=== PATIENT | male | born 1965 | race Caucasian/White ===

== ENCOUNTER 2016-08-21 16:12 | Emergency (ER) | payer OTHER, SELFPAY ==
[2016-08-21 16:27] LABS: #Eosinphils 0.2 thou/uL (0.0-0.7); #Lymphocytes 1.5 thou/uL (1.20-3.40); #Monocytes 0.5 thou/uL (0.11-0.59); #Neutrophils 5.1 thou/uL (1.40-6.50); %Basophils 0.5 % (0.0-1.0); %Eosinophils 2.3 % (0.0-10.0); %Lymphocytes 20.9 % (21.0-51.0); %Monocytes 6.7 % (0.0-10.0); Hematocrit 49.2 % (42.0-52.0); Mean Platelet Volume 5.1 fL (7.4-10.4); White Blood Cell (WBC) Count 7.4 thou/uL (4.8-10.8)
[2016-08-21 16:33] LABS: PTT 26.6 SEC (22.9-36.1); Prothrombin Time 13.3 SEC (12.0-14.7)
--- NOTE | 2016-08-21 16:36 | CT ---
CT HEAD NONCONTRAST 08/21/16 HISTORY: Left sided weakness. Headache. FINDINGS: No comparison. There is no evidence of acute intracranial hemorrhage or infarct. The ventricles appe ar normal in size, shape and position. There is no mass effect or shift of midline structures. IMPRESSION: No acute intracranial abnormalities are demonstrated on noncontrast CT head. Findings were called to Dr. Melendez in the [place] [facility] at 1620 hours. Code CR POS: [id number]
[2016-08-21 16:40] LABS: ALT (SGPT) 19 U/L (0-55); AST (SGOT) 26 U/L (5-34); Alkaline Phosphatase 74 U/L (40-150); Anion Gap 10 mmol/L (10-20); BUN (Urea Nitrogen) 15 mg/dL (8.4-25.7); Bilirubin, Total 1.2 mg/dL (0.2-1.2); CK (CPK) 180 U/L (30-200); Calc. Creatinine Clearance 0 mL/min (70-130); Calcium 8.9 mg/dL (7.8-10.44); Carbon Dioxide 22 mmol/L (22-29); Chloride 114 mmol/L (98-107); Estimated GFR-MDRD 68; Globulin 2.5 g/dL (2.4-3.5); Protein, Total 6.3 g/dL (6.0-8.3)
[2016-08-21 16:42] LABS: Troponin I 0.011 ng/mL (< 0.028)
--- NOTE | 2016-08-21 17:54 | ERRECORD ---
[facility] EMERGENCY RECORD HPI CVA (20:27 JL) CHIEF COMPLAINT: Patient presents for evaluation of motor deficits, arm weakness, leg weakness, Patient presents for evaluation of [place] [employer] and suddenly collapsed. EMS reports pt is responsive but dazed, AAO x 3. Unable to move right leg or right arm. Pt also reports facial weakness, numbness of entire face, right arm, and right leg. Pt reports previous CVA approx 6-8 months ago in [place], right-sided and resolved after 1 day. Pt reports few days of headaches and right arms numbness as well as right chest pain that radiates to the right shoulder and hurts with movement of his arm. HISTORIAN: History provided by patient. LOCATION: Symptoms are localized, most severe to the right arm, most severe to the right leg. QUALITY: Patient is alert and oriented to person, place and time, [place] coma score is 15. TIME COURSE: Sudden onset of symptoms, There has been no change in the patient's symptoms over time. ASSOCIATED WITH: No associated anticoagulant use, No associated aphasia, Associated with chest pain, No associated dysarthria, No associated dysphagia, Associated with headache, No associated nausea, Denies neck pain, Associated with numbness, Associated with pain, Associated with paralysis, No associated seizures, Denies syncope, Associated with visual disturbances, intermittent, No associated vomiting. EXACERBATED BY: Patient's condition exacerbated by nothing. RELIEVED BY: Patient's condition relieved by nothing. RISK FACTORS: No hemorrhagic risk factors, No subarachnoid hemorrhage risk factors, CVA/TIA risk factors, Prior CVA / TIA. ROS (20:31 JL) CONSTITUTIONAL: Historian denies chills, denies fever. EYES: Historian denies eye pain, denies eye redness, denies eye discharge, denies photophobia, reports vision changes. vision 'comes and goes'. With NIHSS testing he read the first few words and then suddenly said it all went blurry and he was uable to read. ENT: Historian denies drooling, denies dysphagia, denies rhinorrhea, denies sore throat. CARDIOVASCULAR: Historian reports chest pain, denies syncope. RESPIRATORY: Historian denies cough, denies shortness of breath, denies sputum. GI: Historian denies abdominal pain, denies diarrhea, denies nausea, denies vomiting. Pt reports occasional bright red blood in his stool the past 2 days. GENITOURINARY MALE: Historian denies dysuria, Pt reports &a-1R&a+25V*p+0X*[id number]*c202B*c15G*c2P*p-0X&a-25V&a+1R Name: Jluis Mast : 1965 M51 MedRec: [id number] AcctNum: [id number] Prepared: Jenny Aug 21, 2016 20:44 by Interface Page 1 of 4 pMD [facility] EMERGENCY RECORD occasional hematuria the past 2 days. MUSCULOSKELETAL: Historian denies back pain, denies neck pain. SKIN: Historian denies rash, denies skin changes. NEUROLOGIC: Historian denies dizziness, reports focal weakness, reports headache, reports paralysis, reports paresthesias, denies seizures. PSYCHIATRIC: Historian denies alcohol abuse, denies drug abuse. PAST MEDICAL HISTORY MEDICAL HISTORY: Past medical history includes neurological disease, ischemic cerebral vascular accident. (20:37 JLOY) MALE SURGICAL HISTORY: Surgical history of orthopedic surgery, Lumbar spine. (20:38 JLOY) SOCIAL HISTORY: Patient denies alcohol use, Patient denies drug use, Patient currently uses tobacco. (20:38 JLOY) NOTES: Nursing records reviewed, Agree with nursing records. (20:37 JLOY) KNOWN ALLERGIES No Known Drug Allergies CURRENT MEDICATIONS No recorded medications VITAL SIGNS VITAL SIGNS: BP: 111/71, Pulse: 70, Resp: 20, Temp: 98.2 (Oral), Pain: 9, O2 sat: 100 on 2L Oxygen, Time: 08/21/2016 16:25. (16:25 [facility]BE) BP: 119/73, Pulse: 68, Resp: 18, O2 sat: 100 on 2L Oxygen, Time: 08/21/2016 16:45. (16:45 MCBE) BP: 107/68, Pulse: 77, Resp: 18, Pain: 9, O2 sat: 100 on 2L Oxygen, Time: 08/21/2016 17:00. (17:00 MCBE) BP: 104/76, Pulse: 82, Resp: 20, O2 sat: 100 on 2L Oxygen, Time: 08/21/2016 17:15. (17:15 [facility]BE) BP: 99/63, Pulse: 69, Resp: 16, Temp: 98.2 (Oral), Pain: 9, O2 sat: 100 on 2L Oxygen, Time: 08/21/2016 17:30. (17:30 [facility]BE) PHYSICAL EXAM (20:34 [facility]) CONSTITUTIONAL: Vital Signs Reviewed, Patient appears non toxic, Patient alert and oriented to person, place and time. HEAD: Head exam included findings of head atraumatic, normocephalic. EYES: Eye exam included findings of eyelids normal to inspection, Pupils equally round and reactive to light, Conjunctiva normal. ENT: Pharynx exam normal, Uvula exam normal, Tonsil exam normal, Mouth exam normal, mucous membranes moist. NECK: Neck exam included findings of normal range of motion, Trachea midline, no jugular venous distention, no cervical adenopathy. &a-1R&a+25V*p+0X*[id number]*c202B*c15G*c2P*p-0X&a-25V&a+1R Name: Jluis Mast : 1965 M51 MedRec: [id number] AcctNum: [id number] Prepared: [facility] Aug 21, 2016 20:44 by Interface Page 2 of 4 pMD [facility] EMERGENCY RECORD RESPIRATORY CHEST: Respiratory exam included findings of no respiratory distress, Breath sounds clear, No wheezing, No rales, No rhonchi, Chest exam included findings of chest movement symmetrical, Tenderness, moderate, to the right anterior chest, Palpation of chest reproduces symptoms. CARDIOVASCULAR: Cardiovascular exam included findings of heart rate regular rate and rhythm, Heart sounds normal. ABDOMEN MALE: Abdominal exam included findings of abdomen nontender, Bowel sounds normal. GENITOURINARY MALE: External genitalia normal. BACK: Back exam included findings of normal inspection. UPPER EXTREMITY: Upper extremity exam included findings of inspection normal, Radial pulse normal, no cyanosis, no clubbing, no edema. LOWER EXTREMITY: Lower extremity exam included findings of inspection normal, Pedal pulse normal, no edema, no calf tenderness. NEURO: Neuro exam findings include patient oriented to person, place and time, Speech normal, [place] coma scale 15, Memory normal, Deep tendon reflexes normal, Pt makes no effort to smile when instructed and says 'I cant move'. This is equal bilaterally. Pt makes no effort to move his brows bilaterally. Pt tracks to the left but says uable to the right. Pt initially deviates tongue to the left. Pt denies sensation to both sides of face. Pt with no sensation to pinprick on right arm, hand, leg but reports some sensation to right ankle and foot. Pt unable to move arm and leg initially with no effort, lets fall to bed when dropped. SKIN: Skin exam included findings of skin warm, dry, and normal in color, no rash. PSYCHIATRIC: Affect, flat. DOCTOR NOTES TEXT: Spoke with Dr. Whitten who accepted the transfer. Spoke with Dr. Guidry concerning the reported hematuria/ blood in stool. Spoke with Dr. Guidry again concerning the varying state of the patient's exam and inability to evaluate his true neurologic state fully. Will hold off on TPA and transfer. (17:19 CHRIS) During the reyez insertion pt suddenly able to move right arm and grab and pull the nurse putting in the reyez. Pt then reported some weakness but also pain with movement. Was able to hold against gravity. Pt initially reports unable to move his face but on transfer to the EMS stretcher pt noted to grimace visibly and easily by nursing staff. (20:38 CHRIS) PROBLEM LIST No recorded problems DIAGNOSIS (17:22 CHRIS) FINAL: PRIMARY: Cerebral infarction. PRESCRIPTION &a-1R&a+25V*p+0X*[id number]*c202B*c15G*c2P*p-0X&a-25V&a+1R Name: Jluis Mast : 1965 M51 MedRec: [id number] AcctNum: [id number] Prepared: [facility] Aug 21, 2016 20:44 by Interface Page 3 of 4 pMD [facility] EMERGENCY RECORD No recorded prescriptions DISPOSITION PATIENT: Disposition Type: Transfer, Disposition: Transfer to [facility]. (17:22 CHRIS) Patient left the department. (17:50 RIN) Olson: CHRIS=MD Tovar Joshua MCBE=Lauren Menon &a-1R&a+25V*p+0X*[id number]*c202B*c15G*c2P*p-0X&a-25V&a+1R Name: Jluis Mast : 1965 M51 MedRec: [id number] AcctNum: [id number] Prepared: Jenny Aug 21, 2016 20:44 by Interface Page 4 of 4 pMD MTDD
--- NOTE | 2016-08-21 18:02 | PICIS ---
[facility] EMERGENCY RECORD TRIAGE (ThuAug 21, 2016 16:15 MCBE) PATIENT: NAME: Jluis Mast, AGE: 51, GENDER: male, : Thu1965, TIME OF GREET: ThuAug 21, 2016 16:13, PREFERRED LANGUAGE: [place], RACE: C, ECODE BILLING MAP: [facility], SSN: [id number], Zip Code: [address], KG WEIGHT: 65.77, PHONE: , , , PERSON ID: [id number]. TRIAGE NOTES: last seen normal at 1530. COMPLAINT: POSSIBLE STROKE. ADMISSION: URGENCY: 1 Critical, ADMISSION SOURCE: Home, TRANSPORT: AMBULANCE - [facility], BED: ER *TR1. PROVIDERS: TRIAGE NURSE: Lauren Menon. KNOWN ALLERGIES No Known Drug Allergies CURRENT MEDICATIONS No recorded medications VITAL SIGNS VITAL SIGNS: BP: 111/71, Pulse: 70, Resp: 20, Temp: 98.2 (Oral), Pain: 9, O2 sat: 100 on 2L Oxygen, Time: 08/21/2016 16:25. (16:25 MCBE) BP: 119/73, Pulse: 68, Resp: 18, O2 sat: 100 on 2L Oxygen, Time: 08/21/2016 16:45. (16:45 MCBE) BP: 107/68, Pulse: 77, Resp: 18, Pain: 9, O2 sat: 100 on 2L Oxygen, Time: 08/21/2016 17:00. (17:00 MCBE) BP: 104/76, Pulse: 82, Resp: 20, O2 sat: 100 on 2L Oxygen, Time: 08/21/2016 17:15. (17:15 MCBE) BP: 99/63, Pulse: 69, Resp: 16, Temp: 98.2 (Oral), Pain: 9, O2 sat: 100 on 2L Oxygen, Time: 08/21/2016 17:30. (17:30 MCBE) NURSING ASSESSMENT: CVA ASSESSMENT TOOL NIHSS: CVA assessment findings: Level of consciousness: alert, keenly responsive (0), Questions: answers neither question correctly (2), Commands: performs both tasks correctly (0), Best gaze: partial gaze palsy (1), Visual: complete hemianopia (2), Facial palsy: partial paralysis/total or near-total paralysis of lower face (2), Motor Left Arm: no drift, arm stays 90/45 degrees for full 10 seconds (0), Motor Right Arm: no movement (4), Motor left leg: no drift, leg stays at 30 degrees for full five seconds (0), Motor right leg: no effort against gravity, leg falls to bed or support (3), Limb ataxia: present in one limb (1), Sensory: mild to moderate sensory loss; patient feels pinprick is less sharp or is dull on the affected side; or there is a loss of superficial pain with pinprick, but patient is aware he/she is being touched (1), Best language: no aphasia; normal (0), Dysarthria: normal (0), Extinction and Inattention: normal (0), Total score 16. (16:23 JPAR) &a-1R&a+25V*p+0X*x4406B*c202B*c15G*c2P*p-0X&a-25V&a+1R Name: Jluis Mast : 1965 M51 MedRec: [id number] AcctNum: [id number] Prepared: Jenny Aug 21, 2016 20:51 by Interface Page 1 of 13 pMD [facility] EMERGENCY RECORD CVA assessment findings: Level of consciousness: alert, keenly responsive (0), Questions: answers one question correctly (1), Commands: performs both tasks correctly (0), Best gaze: partial gaze palsy (1), Visual: partial hemianopia (1), Facial palsy: partial paralysis/total or near-total paralysis of lower face (2), Motor Left Arm: no drift, arm stays 90/45 degrees for full 10 seconds (0), Motor Right Arm:some effort against gravity, drifts down to bed or support (2), Motor left leg: no drift, leg stays at 30 degrees for full five seconds (0), Motor right leg: drift, leg drifts down but does not hit bed or other support (1), Limb ataxia: present in one limb (1), Sensory: mild to moderate sensory loss; patient feels pinprick is less sharp or is dull on the affected side; or there is a loss of superficial pain with pinprick, but patient is aware he/she is being touched (1), Best language: no aphasia; normal (0), Dysarthria: normal (0), Extinction and Inattention: normal (0), Total score 10. (16:38 JPAR) CVA assessment findings: Level of consciousness: alert, keenly responsive (0), Questions: answers one question correctly (1), Commands: performs both tasks correctly (0), Best gaze: normal (0), Visual: partial hemianopia (1), Facial palsy: partial paralysis/total or near-total paralysis of lower face (2), Motor Left Arm: no drift, arm stays 90/45 degrees for full 10 seconds (0), Motor Right Arm:some effort against gravity, drifts down to bed or support (2), Motor left leg: no drift, leg stays at 30 degrees for full five seconds (0), Motor right leg: drift, leg drifts down but does not hit bed or other support (1), Limb ataxia: present in one limb (1), Sensory: mild to moderate sensory loss; patient feels pinprick is less sharp or is dull on the affected side; or there is a loss of superficial pain with pinprick, but patient is aware he/she is being touched (1), Best language: no aphasia; normal (0), Dysarthria: normal (0), Extinction and Inattention: normal (0), Total score 10. (16:53 JPAR) CVA assessment findings: Level of consciousness: alert, keenly responsive (0), Questions: answers one question correctly (1), Commands: performs both tasks correctly (0), Best gaze: normal (0), Visual: partial hemianopia (1), Facial palsy: partial paralysis/total or near-total paralysis of lower face (2), Motor Left Arm: no drift, arm stays 90/45 degrees for full 10 seconds (0), Motor Right Arm:some effort against gravity, drifts down to bed or support (2), Motor left leg: no drift, leg stays at 30 degrees for full five seconds (0), Motor right leg: drift, leg drifts down but does not hit bed or other support (1), Limb ataxia: present in one limb (1), Sensory: mild to moderate sensory loss; patient feels pinprick is less sharp or is dull on the affected side; or there is a loss of superficial pain with pinprick, but patient is aware he/she is being touched (1), Best language: no aphasia; normal (0), Dysarthria: normal (0), Extinction and Inattention: normal (0), Total score 10. (17:08 JPAR) CVA assessment findings: Level of consciousness: alert, keenly responsive &a-1R&a+25V*p+0X*r0629Q*c202B*c15G*c2P*p-0X&a-25V&a+1R Name: Jluis Mast : 1965 M51 MedRec: [id number] AcctNum: [id number] Prepared: Jenny Aug 21, 2016 20:51 by Interface Page 2 of 13 D [facility] EMERGENCY RECORD (0), Questions: answers one question correctly (1), Commands: performs both tasks correctly (0), Best gaze: normal (0), Visual: partial hemianopia (1), Facial palsy: partial paralysis/total or near-total paralysis of lower face (2), Motor Left Arm: no drift, arm stays 90/45 degrees for full 10 seconds (0), Motor Right Arm:some effort against gravity, drifts down to bed or support (2), Motor left leg: no drift, leg stays at 30 degrees for full five seconds (0), Motor right leg: drift, leg drifts down but does not hit bed or other support (1), Limb ataxia: present in one limb (1), Sensory: mild to moderate sensory loss; patient feels pinprick is less sharp or is dull on the affected side; or there is a loss of superficial pain with pinprick, but patient is aware he/she is being touched (1), Best language: no aphasia; normal (0), Dysarthria: normal (0), Extinction and Inattention: normal (0), Total score 10. (17:23 JPAR) CVA assessment findings: Level of consciousness: alert, keenly responsive (0), Questions: answers one question correctly (1), Commands: performs both tasks correctly (0), Best gaze: partial gaze palsy (1), Visual: partial hemianopia (1), Facial palsy: partial paralysis/total or near-total paralysis of lower face (2), Motor Left Arm: no drift, arm stays 90/45 degrees for full 10 seconds (0), Motor Right Arm:some effort against gravity, drifts down to bed or support (2), Motor left leg: no drift, leg stays at 30 degrees for full five seconds (0), Motor right leg: drift, leg drifts down but does not hit bed or other support (1), Limb ataxia: present in one limb (1), Sensory: mild to moderate sensory loss; patient feels pinprick is less sharp or is dull on the affected side; or there is a loss of superficial pain with pinprick, but patient is aware he/she is being touched (1), Best language: no aphasia; normal (0), Dysarthria: normal (0), Extinction and Inattention: normal (0), Total score 10. (17:38 MCBE) NURSING ASSESSMENT: FALL RISK (17:39 MCBE) FALL RISK: Fall risk assessment findings include: History of falls (5), Sensory deficits (1), Impaired mobility (3), Neurologic diagnosis (3), Elimination problems (3), Total score 15, Fall risk. NURSING ASSESSMENT: SKIN CONSTITUTIONAL: Patient arrives, via stretcher, Unsteady gait, Assistance to cart, Lift to cart, Inability to ambulate, History obtained from, Emergency Medical Services, Patient appears, uncomfortable, Patient, confused, Patient alert, Oriented to person, place and time, Skin warm, Skin dry, Skin normal in color, Mucous membranes pink, Mucous membranes moist, Patient complains of Stroke Like Symptoms. (16:45 JPAR) PAIN: aching pain, sharp pain, tender &a-1R&a+25V*p+0X*v9296G*c202B*c15G*c2P*p-0X&a-25V&a+1R Name: Jluis Mast : 1965 M51 MedRec: [id number] AcctNum: [id number] Prepared: Jenny Aug 21, 2016 20:51 by Interface Page 3 of 13 pMD [facility] EMERGENCY RECORD pain, unbearable pain, R arm, Onset of pain 1 hour, on a scale 0-10 patient rates pain as 7. (16:45 JPAR) SKIN: Skin assessment findings include skin warm, Skin dry, Skin normal in color, Inspection findings include: No pressure ulcer to the shoulder, Inspection findings include no pressure ulcer to the elbow, Inspection findings include no pressure ulcers to the hip, Inspection findings include no pressure ulcer to the sacrum, Inspection findings include no pressure ulcer to the heel, Inspection findings include no pressure ulcer, Inspection findings include no pressure ulcer. (17:39 MCBE) Skin assessment findings include skin warm, Skin dry, Skin normal in color, Inspection findings include no abrasions, Inspection findings include no amputation, Inspection findings include no bite shelton, Inspection findings include no bleeding varicosities, Inspection findings include no hsu, Inspection findings include no cysts, Inspection findings include no deformity, Inspection findings include no bruising, Inspection findings include no contusion, Inspection findings include no ecchymosis, Inspection findings include no foreign body, Inspection findings include no lacerations, Inspection findings include no lesions, Inspection findings include no open fracture, Inspection findings include: No pressure ulcer to the shoulder, Inspection findings include no pressure ulcer to the elbow, Inspection findings include no pressure ulcers to the hip, Inspection findings include no pressure ulcer to the sacrum, Inspection findings include no pressure ulcer to the heel, Inspection findings include no pressure ulcer, Inspection findings include no pressure ulcer, Inspection findings include no puncture wounds, Inspection findings include no rash, Inspection findings include no redness, Inspection findings include no signs of infection, Inspection findings include no signs of trauma, Inspection findings include no swelling. (16:45 JPAR) JUAN SCALE: (4) Sensory perception has no impairment, (4) Skin is rarely moist, (4) Patient walks frequently, (4) No mobility limitations, (3) Adequate nutrition, (3) Patient has no apparent problem moving, Juan Risk Total: 22. (17:39 MCBE) (3) Sensory perception slightly limited, (4) Skin is rarely moist, (1) Patient is bedfast, (1) Completely immobile, (3) Adequate nutrition, (1) Patient has problem moving, Juan Risk Total: 13. (16:45 JPAR) SAFETY: Side rails up, Cart/Stretcher in lowest position, Family at bedside, Call light within reach, Hospital ID band on. (16:45 JPAR) NURSING PROCEDURE: BEDSIDE SIRS TESTING (17:40 MCBE) SCORES: Heart Rate 55-109 (0), Temp range 96.8-101.1 (0), respiratory rate 12-24 (0), Latest WBC 3-14.9 (0), Mental status altered: yes (1), Total SIRS Score 1, Infection or Suspected Infection: No. &a-1R&a+25V*p+0X*k8458D*c202B*c15G*c2P*p-0X&a-25V&a+1R Name: Jluis Mast : 1965 M51 MedRec: [id number] AcctNum: [id number] Prepared: [facility] Aug 21, 2016 20:51 by Interface Page 4 of 13 [facility] EMERGENCY RECORD NURSING PROCEDURE: EKG CHART (16:27 JPAR) PATIENT IDENTIFIER: Patient actively involved in identification process, Patient's identity verified by patient stating name, Patient's identity verified by patient stating date, Patient's identity verified by hospital ID bracelet, Patient's identity verified by family member. EKG: EKG indicated for CVA, 12 lead EKG performed on the left chest, first EKG. FOLLOW-UP: After procedure, EKG for interpretation given to Dr. Tovar. SAFETY: Side rails up, Cart/Stretcher in lowest position, Family at bedside, Call light within reach, Hospital ID band on. NURSING PROCEDURE: IV PATIENT IDENITIFIER: Patient actively involved in identification process, Patient's identity verified by patient stating name, Patient's identity verified by patient stating date, Patient's identity verified by hospital ID bracelet. (16:15 JPAR) Patient actively involved in identification process, Patient's identity verified by patient stating name, Patient's identity verified by patient stating date, Patient's identity verified by hospital ID bracelet. (17:40 MCBE) IV SITE 1: IV therapy indicated for hydration, IV therapy indicated for medication administration, IV established, to the left antecubital, using an 18 gauge catheter, Saline lock established, Flushed with normal saline (mls): 10, Notes: HIM CLERK by EMS. (16:15 JPAR) IV therapy indicated for hydration, IV therapy indicated for medication administration, IV established, to the right forearm, using a 20 gauge catheter, in one attempt, IV site prepped with CHLORAPREP, Saline lock established, Flushed with normal saline (mls): 10, Labs drawn at time of placement, labeled in the presence of the patient and sent to lab, Notes: COMPLETED BY AYLIN BOO. (17:40 MCBE) IV SITE 2: IV therapy indicated for hydration, IV therapy indicated for medication administration, IV established, to the right antecubital, using a 20 gauge catheter, in two attempts, Unable to obtain IV access. (16:28 JPAR) FOLLOW-UP SITE 2: After procedure, 2x2 dressing applied, After procedure, no drainage at IV site, After procedure, no swelling at IV site, After procedure, no redness at IV site, IV discontinued, catheter intact. (17:33 JPAR) SAFETY: Side rails up, Cart/Stretcher in lowest position, Call light within reach, Hospital ID band on. (16:15 JPAR) NURSING PROCEDURE: NURSE NOTES NURSES NOTES: Notes: ERMD HAS ADVISED NOT GIVE PATIENT TPA. ERMD DISCUSSED WITH NEUROLOGIST. PATIENT HAS NOT BEEN CONSISTENT AND COOPERATIVE FOR NIH TESTING PROCEDURES. (17:18 MCBE) Notes: PRIMARY NURSE OBSERVES PATIENT GRAB THE NURSE WITH HIS RIGHT &a-1R&a+25V*p+0X*n0558Q*c202B*c15G*c2P*p-0X&a-25V&a+1R Name: Jluis Mast : 1965 M51 MedRec: [id number] AcctNum: [id number] Prepared: Jenny Aug 21, 2016 20:51 by Interface Page 5 of 13 pMD [facility] EMERGENCY RECORD HAND WHEN ATTEMPTING TO PUT GONZALEZ CATH IN. PATIENT MOVED RIGHT ARM AND RIGHT LEG TO MOVE AWAY FROM PRIMARY NURSE THAT WAS ATTEMPTING TO PUT CATH IN. (16:50 MCBE) Notes: ERMD ADVISED PATIENT TO DO HIS BEST DURING THE NIH STROKE SCALE SCREENING. INFORMED PATIENT ABOUT TPA AND THE SIDE EFFECTS IT COULD CAUSE, AND WHY IT WAS IMPORTANT TO HAVE THE CORRECT SCREENING. PATIENT VERBALLY ACKNOWLEDGED AND WAS COPPERATIVE WITH ERMD. (17:05 MCBE) Notes: EMS ADVISED THEY WOULD START A LITER IF THE PATIENT'S BLOOD PRESSURE DID NOT IMPROVE. ERMD INFORMED AND VERBALLY ACKNOWLEDGED. (17:45 MCBE) NURSING PROCEDURE: TRANSFER (17:50 MCBE) TRANSFER: Reason for transfer primary physician request, Reason for transfer need for specialized care, Diagnosis: RULE OUT CVA, Accepting institution: [facility], Accepting physician: JENNIFER, Referring physician: GUY, Transported by urgent ambulance, accompanied by emergency medical services personnel, Report called to receiving facility, [facility]OH[facility] BOO, Provided opportunity to answer questions, Copy of patient record prepared for receiving facility, Copy of diagnostic studies, Patient consent for transfer signed. BELONGINGS: Belongings and valuables with patient upon arrival to the Emergency Department include:, Belongings and valuables with patient at time of admission include:, Notes: PATIENT BELONGINGS PLACED IN WHITE BELONGING BAG AND SENT WITH EMS. NURSING PROCEDURE: TRANSPORT TO TESTS (16:15 JPAR) PATIENT IDENTIFIER: Patient actively involved in identification process, Patient's identity verified by patient stating name, Patient's identity verified by patient stating date, Patient's identity verified by hospital ID bracelet, Patient's identity verified by family member. TRANSPORT TO TESTS: Transport indicated to facilitate diagnosis, Patient transported to CT scan, via cart, Accompanied by x-ray asbestos abatement technician, Notes: Pt taken strait to [place] @ 16:11. FOLLOW-UP: After procedure, patient returned to emergency department. SAFETY: Side rails up, Cart/Stretcher in lowest position, Family at bedside, Call light within reach, Hospital ID band on. NURSING PROCEDURE: URINE COLLECTION (17:00 MCBE) PATIENT IDENTIFIER: Patient actively involved in identification process, Patient's identity verified by patient stating name, Patient's identity verified by patient stating date, Patient's identity verified by hospital ID bracelet. URINE COLLECTION MALE: Simple gonzalez inserted, using a 16 fr pre-connected catheter, in one attempt, output amount (mL) 200, urine yellow in color, and clear, Gonzalez has been anchored to leg and labeled with date and time, Specimen labeled in the presence of the &a-1R&a+25V*p+0X*j2348B*c202B*c15G*c2P*p-0X&a-25V&a+1R Name: Jluis Mast : 1965 M51 MedRec: [id number] AcctNum: [id number] Prepared: ThuAug 21, 2016 20:51 by Interface Page 6 of 13 D [facility] EMERGENCY RECORD patient and sent to lab, Specimen obtained for culture labeled in the presence of the patient and sent to lab. ORDER DETAILS Order Name: CONDENSER TESTER ED, Status: Done, Time: 16:28 08/21/2016, User: RIN, - Ordered for: MD Tovar Joshua, - Entered by: MD Tovar Joshua - [facility] Aug 21, 2016 16:17, - Quantity: 1, Order Name: Cardiac Profile w/CKMB & Troponin - I, Status: Active, Time: 16:17 08/21/2016, User: CHRIS, - Ordered for: MD Tovar Joshua, - Entered by: MD Tovar Joshua - [facility] Aug 21, 2016 16:17, - Quantity: 1, Order Name: CBC with Differential, Status: Active, Time: 16:17 08/21/2016, User: CHRIS, - Ordered for: MD Tovar Joshua, - Entered by: MD Tovar Joshua - Jenny Aug 21, 2016 16:17, - Quantity: 1, Order Name: CK (CPK), Status: Active, Time: 16:17 08/21/2016, User: CHRIS, - Ordered for: MD Tovar Joshua, - Entered by: MD Tovar Joshua - [facility] Aug 21, 2016 16:17, - Quantity: 1, Order Name: Comprehensive Metabolic Panel, Status: Active, Time: 16:17 08/21/2016, User: CHRIS, - Ordered for: MD Tovar Joshua, - Entered by: MD Tovar Joshua - [facility] Aug 21, 2016 16:17, - Quantity: 1, Order Name: CT Brain WO Con, Status: Active, Time: 00:00 08/21/2016, User: CHRIS, - Ordered for: MD Tovar Joshua, - Entered by: MD Tovar Joshua - [facility] Aug 21, 2016, - Quantity: 1, Order Name: Culture, Urine, Status: Active, Time: 18:24 08/21/2016, User: RIN, - Ordered for: MD Tovar Joshua, - Entered by: Lauren Menon - [facility] Aug 21, 2016 18:24, - Quantity: 1, Order Name: EKG 12 Lead in Emergency Room, Status: Active, Time: 16:17 08/21/2016, User: CHRIS, - Ordered for: MD Tovar Joshua, - Entered by: MD Tovar Joshua - [facility] Aug 21, 2016 16:17, - Quantity: 1, Order Name: NIHSS, Status: Done, Time: 16:28 08/21/2016, User: RIN, - Ordered for: MD Tovar Joshua, - Entered by: MD Tovar Joshua - [facility] Aug 21, 2016 16:17, - Quantity: 1, Order Name: Occult Blood, Stool DIAGNOSTIC(Guiac), Status: Active, &a-1R&a+25V*p+0X*w6716N*c202B*c15G*c2P*p-0X&a-25V&a+1R Name: Jluis Mast : 1965 M51 MedRec: [id number] AcctNum: [id number] Prepared: ThuAug 21, 2016 20:51 by Interface Page 7 of 13 [facility] EMERGENCY RECORD Time: 16:57 08/21/2016, User: CHRIS, - Ordered for: MD Tovar Joshua, - Entered by: MD Tovar Joshua - [facility] Aug 21, 2016 16:57, - Quantity: 1, Order Name: Protime with INR, Status: Active, Time: 16:17 08/21/2016, User: CHRIS, - Ordered for: MD Tovar Joshua, - Entered by: MD Tovar Joshua - [facility] Aug 21, 2016 16:17, - Quantity: 1, Order Name: PTT, Status: Active, Time: 16:17 08/21/2016, User: CHRIS, - Ordered for: MD Tovar Joshua, - Entered by: MD Tovar Joshua - Jenny Aug 21, 2016 16:17, - Quantity: 1, Order Name: Urinalysis w/ Rflx Microscopic, Status: Active, Time: 16:56 08/21/2016, User: CHRIS, - Ordered for: MD Tovar Joshua, - Entered by: MD Tovar Joshua - Thu Aug 21, 2016 16:56, - Quantity: 1. HPI CVA (20:27 CHRIS) CHIEF COMPLAINT: Patient presents for evaluation of motor deficits, arm weakness, leg weakness, Patient presents for evaluation of [place] HIM CLERK and suddenly collapsed. EMS reports pt is responsive but dazed, AAO x 3. Unable to move right leg or right arm. Pt also reports facial weakness, numbness of entire face, right arm, and right leg. Pt reports previous CVA approx 6-8 months ago in [place], right-sided and resolved after 1 day. Pt reports few days of headaches and right arms numbness as well as right chest pain that radiates to the right shoulder and hurts with movement of his arm. HISTORIAN: History provided by patient. LOCATION: Symptoms are localized, most severe to the right arm, most severe to the right leg. QUALITY: Patient is alert and oriented to person, place and time, Diana coma score is 15. TIME COURSE: Sudden onset of symptoms, There has been no change in the patient's symptoms over time. ASSOCIATED WITH: No associated anticoagulant use, No associated aphasia, Associated with chest pain, No associated dysarthria, No associated dysphagia, Associated with headache, No associated nausea, Denies neck pain, Associated with numbness, Associated with pain, Associated with paralysis, No associated seizures, Denies syncope, Associated with visual disturbances, intermittent, No associated vomiting. EXACERBATED BY: Patient's condition exacerbated by nothing. RELIEVED BY: Patient's condition relieved by nothing. RISK FACTORS: No hemorrhagic risk factors, No subarachnoid hemorrhage risk factors, CVA/TIA risk factors, Prior &a-1R&a+25V*p+0X*h6004B*c202B*c15G*c2P*p-0X&a-25V&a+1R Name: Jluis Mast : 1965 M51 MedRec: [id number] AcctNum: [id number] Prepared: Jenny Aug 21, 2016 20:51 by Interface Page 8 of 13 pMD [facility] EMERGENCY RECORD CVA / TIA. ROS (20:31 JLOY) CONSTITUTIONAL: Historian denies chills, denies fever. EYES: Historian denies eye pain, denies eye redness, denies eye discharge, denies photophobia, reports vision changes. vision 'comes and goes'. With NIHSS testing he read the first few words and then suddenly said it all went blurry and he was uable to read. ENT: Historian denies drooling, denies dysphagia, denies rhinorrhea, denies sore throat. CARDIOVASCULAR: Historian reports chest pain, denies syncope. RESPIRATORY: Historian denies cough, denies shortness of breath, denies sputum. GI: Historian denies abdominal pain, denies diarrhea, denies nausea, denies vomiting. Pt reports occasional bright red blood in his stool the past 2 days. GENITOURINARY MALE: Historian denies dysuria, Pt reports occasional hematuria the past 2 days. MUSCULOSKELETAL: Historian denies back pain, denies neck pain. SKIN: Historian denies rash, denies skin changes. NEUROLOGIC: Historian denies dizziness, reports focal weakness, reports headache, reports paralysis, reports paresthesias, denies seizures. PSYCHIATRIC: Historian denies alcohol abuse, denies drug abuse. PAST MEDICAL HISTORY MEDICAL HISTORY: Past medical history includes neurological disease, ischemic cerebral vascular accident. (20:37 JLOY) MALE SURGICAL HISTORY: Surgical history of orthopedic surgery, Lumbar spine. (20:38 JLOY) SOCIAL HISTORY: Patient denies alcohol use, Patient denies drug use, Patient currently uses tobacco. (20:38 JLOY) NOTES: Nursing records reviewed, Agree with nursing records. (20:37 JLOY) PHYSICAL EXAM (20:34 JLOY) CONSTITUTIONAL: Vital Signs Reviewed, Patient appears non toxic, Patient alert and oriented to person, place and time. HEAD: Head exam included findings of head atraumatic, normocephalic. EYES: Eye exam included findings of eyelids normal to inspection, Pupils equally round and reactive to light, Conjunctiva normal. ENT: Pharynx exam normal, Uvula exam normal, Tonsil exam normal, Mouth exam normal, mucous membranes moist. NECK: Neck exam included findings of normal range of motion, Trachea midline, no jugular venous distention, no cervical adenopathy. &a-1R&a+25V*p+0X*m2298Z*c202B*c15G*c2P*p-0X&a-25V&a+1R Name: Jluis Mast : 1965 M51 MedRec: [id number] AcctNum: [id number] Prepared: [facility] Aug 21, 2016 20:51 by Interface Page 9 of 13 pMD [facility] EMERGENCY RECORD RESPIRATORY CHEST: Respiratory exam included findings of no respiratory distress, Breath sounds clear, No wheezing, No rales, No rhonchi, Chest exam included findings of chest movement symmetrical, Tenderness, moderate, to the right anterior chest, Palpation of chest reproduces symptoms. CARDIOVASCULAR: Cardiovascular exam included findings of heart rate regular rate and rhythm, Heart sounds normal. ABDOMEN MALE: Abdominal exam included findings of abdomen nontender, Bowel sounds normal. GENITOURINARY MALE: External genitalia normal. BACK: Back exam included findings of normal inspection. UPPER EXTREMITY: Upper extremity exam included findings of inspection normal, Radial pulse normal, no cyanosis, no clubbing, no edema. LOWER EXTREMITY: Lower extremity exam included findings of inspection normal, Pedal pulse normal, no edema, no calf tenderness. NEURO: Neuro exam findings include patient oriented to person, place and time, Speech normal, Diana coma scale 15, Memory normal, Deep tendon reflexes normal, Pt makes no effort to smile when instructed and says 'I cant move'. This is equal bilaterally. Pt makes no effort to move his brows bilaterally. Pt tracks to the left but says uable to the right. Pt initially deviates tongue to the left. Pt denies sensation to both sides of face. Pt with no sensation to pinprick on right arm, hand, leg but reports some sensation to right ankle and foot. Pt unable to move arm and leg initially with no effort, lets fall to bed when dropped. SKIN: Skin exam included findings of skin warm, dry, and normal in color, no rash. PSYCHIATRIC: Affect, flat. EVENTS TRANSFER: Triage to Emergency Emergency Room *TR1. (16:15 MCBE) Removed from Emergency Emergency Room *TR1. (17:50 MCBE) DOCTOR NOTES TEXT: Spoke with Dr. Whittne who accepted the transfer. Spoke with Dr. Guidry concerning the reported hematuria/ blood in stool. Spoke with Dr. Guidry again concerning the varying state of the patient's exam and inability to evaluate his true neurologic state fully. Will hold off on TPA and transfer. (17:19 JLOY) During the gonzalez insertion pt suddenly able to move right arm and grab and pull the nurse putting in the gonzalez. Pt then reported some weakness but also pain with movement. Was able to hold against gravity. Pt initially reports unable to move his face but on transfer to the EMS stretcher pt noted to grimace visibly and easily by nursing staff. (20:38 JLOY) PROBLEM LIST No recorded problems &a-1R&a+25V*p+0X*w9045I*c202B*c15G*c2P*p-0X&a-25V&a+1R Name: Jluis Mast : 1965 M51 MedRec: [id number] AcctNum: [id number] Prepared: [facility] Aug 21, 2016 20:51 by Interface Page 10 of 13 pMD [facility] EMERGENCY RECORD DIAGNOSIS (17:22 JLOY) FINAL: PRIMARY: Cerebral infarction. DISPOSITION PATIENT: Disposition Type: Transfer, Disposition: Transfer to [facility]. (17:22 JLOY) Patient left the department. (17:50 MCBE) PRESCRIPTION No recorded prescriptions IMAGING *EKG: Image captured from scanner. (16:32 MCBE) STROKE PACKET: Image captured from scanner. (17:13 MCBE) Page 2 added. Image captured from scanner. (17:33 MCBE) Page 3 added. Image captured from scanner. (17:34 MCBE) *MEMORANDUM OF TRANSFER: Image captured from scanner. (17:35 MCBE) STROKE PACKET: Page 4 added. Image captured from scanner. (17:35 MCBE) *SUPPLY CHARGE SHEET: Image captured from scanner. (17:59 MCBE) STROKE PACKET: Page 5 added. Image captured from scanner. (18:04 MCBE) ADMIN (20:40 JLOY) DIGITAL SIGNATURE: MD Tovar Joshua. RESULTS RADIOLOGY: CT Brain WO Con Observe DT: ThuAug 21, 2016 16:30, BR CT HEAD NONCONTRAST 08/21/16 HISTORY: Left sided weakness. Headache. FINDINGS: No comparison. There is no evidence of acute intracranial hemorrhage or infarct. The ventricles appe ar normal in size, shape and position. There is no mass effect or shift of midline structures. IMPRESSION: No acute intracranial abnormalities are demonstrated on noncontrast CT head. Findings were called to Dr. Melendez in the [place] [facility] Department at 1620 hours. Code CR &a-1R&a+25V*p+0X*t0025U*c202B*c15G*c2P*p-0X&a-25V&a+1R Name: Jluis Mast : 1965 M51 MedRec: [id number] AcctNum: [id number] Prepared: ThuAug 21, 2016 20:51 by Interface Page 11 of 13 pMD [facility] EMERGENCY RECORD POS: [place] . (16:42 [facility]) LABORATORY: PTT Collection DT: ThuAug 21, 2016 16:25, See comment below , Anticoagulant? NONE Medical Necessity SUSPECT COAGULOPATHY , PTT 26.6 SEC, Range (22.9-36.1). (16:42 [facility]) Protime with INR Collection DT: ThuAug 21, 2016 16:25, See comment below , Anticoagulant? NONE Medical Necessity SUSPECT COAGULOPATHY , Prothrombin Time 13.3 SEC, Range (12.0-14.7), INR-International Normal Ratio 1.0 , ATTENTION: READ CAREFULLY , The, recommended therapeutic ranges for oral anticoagulant treatments are: , , Low Intensity: 1.5 - 2.0 Moderate Intensity: 2.0, - 3.0 High Intensity (1): 2.5 - 3.5 High, Intensity (2): 3.0 - 4.0 CRITICAL: >, 4.0 . (16:42 BE) CBC with Differential Collection DT: ThuAug 21, 2016 16:25, White Blood Cell (WBC) Count 7.4 thou/uL, Range (4.8-10.8), Red Blood Cell (RBC) Count 5.10 mill/uL, Range (4.70-6.10), Hemoglobin 16.2 g/dL, Range (14.0-18.0), Hematocrit 49.2 %, Range (42.0-52.0), *Mean Corpuscular Volume 96.5 - H fl, Range (80.0-94.0), *Mean Corpuscular Hemoglobin 31.8 - H pg, Range (27.0-31.0), Mean Corpuscular HGB CONC 32.9 g/dL, Range (32.0-36.0), RBC Distribution Width 11.7 %, Range (11.5-14.5), Platelet Count 231 thou/uL, Range (130-400), *Mean Platelet Volume 5.1 - L fL, Range (7.4-10.4), %Neutrophils 69.6 %, Range (42.0-75.0), *%Lymphocytes 20.9 - L %, Range (21.0-51.0), %Monocytes 6.7 %, Range (0.0-10.0), %Eosinophils 2.3 %, Range (0.0-10.0), %Basophils 0.5 %, Range (0.0-1.0), #Neutrophils 5.1 thou/uL, Range (1.40-6.50), #Lymphocytes 1.5 thou/uL, Range (1.20-3.40), #Monocytes 0.5 thou/uL, Range (0.11-0.59), #Eosinphils 0.2 thou/uL, Range (0.0-0.7), #Basophils 0.0 thou/uL, Range (0.0-0.2). (16:42 [facility]) Accuchek Collection DT: ThuAug 21, 2016 16:58, Accuchek 101 mg/dL, Range (70-110). (17:31 MCBE) &a-1R&a+25V*p+0X*h5281M*c202B*c15G*c2P*p-0X&a-25V&a+1R Name: Jluis Mast : 1965 M51 MedRec: [id number] AcctNum: [id number] Prepared: ThuAug 21, 2016 20:51 by Interface Page 12 of 13 pMD [facility] EMERGENCY RECORD Cardiac Profile w/CKMB & TropI Collection DT: ThuAug 21, 2016 16:25, CKMB 2.3 ng/mL, Range (0-6.6), Troponin I 0.011 ng/mL, Range (< 0.028), Reference Range , 0.00 - 0.028 ng/mL Negative 0.029 - 0.29 ng/mL , Indeterminate Greater or Equal to 0.3 ng/mL Strongly suggests [place] , . (17:31 MCBE) CK (CPK) Collection DT: ThuAug 21, 2016 16:25, CK (CPK) 180 U/L, Range (30-200). (17:31 MCBE) Comprehensive Metabolic Panel Collection DT: ThuAug 21, 2016 16:25, Sodium 142 mmol/L, Range (136-145), Potassium 4.2 mmol/L, Range (3.5-5.1), *Chloride 114 - H mmol/L, Range (98-107), Carbon Dioxide 22 mmol/L, Range (22-29), Anion Gap 10 mmol/L, Range (10-20), BUN (Urea Nitrogen) 15 mg/dL, Range (8.4-25.7), Creatinine 1.13 mg/dL, Range (0.7-1.3), Estimated GFR-MDRD 68 , Reference Range for Estimated GFR: Greater than 90, mL/min/1.73 m2 NOTE: The MDRD equation has not been validated for use, with the elderly (over 70 years of age), women, patients with, serious comorbid condition or persons with extremes of body size, muscle, mass, or nutritional status. , *Glucose 108 - H mg/dL, Range (70-105), Calcium 8.9 mg/dL, Range (7.8-10.44), Bilirubin, Total 1.2 mg/dL, Range (0.2-1.2), Protein, Total 6.3 g/dL, Range (6.0-8.3), NOTE: Plasma values are generally 0.3 to 0.5 g/dL higher than serum values, due to the presence of fibrinogen. , Albumin 3.8 g/dL, Range (3.5-5.0), Globulin 2.5 g/dL, Range (2.4-3.5), Alb/Glob Ratio 1.5 g/dL, Range (1.2-2.2), Alkaline Phosphatase 74 U/L, Range (40-150), AST (SGOT) 26 U/L, Range (5-34), ALT (SGPT) 19 U/L, Range (0-55). (17:31 MCBE) Olson: CHRIS=MD Guy, Rick PATEL=RAJEEV Bella, Wilber MCBE=Lauren Menon &a-1R&a+25V*p+0X*t7810P*c202B*c15G*c2P*p-0X&a-25V&a+1R Name: Jluis Mast : 1965 M51 MedRec: [id number] AcctNum: [id number] Prepared: Jenny Aug 21, 2016 20:51 by Interface Page 13 of 13 pMD MTDD
[2016-08-21 18:34] LABS: Bilirubin Negative (Negative); Blood, Urine Trace (Negative); Glucose, Urine (Dipstick) Negative (Negative); Ketone, Urine Negative (Negative); Nitrite Negative (Negative); Protein, Urine (Dipstick) Trace mg/dL (Neg-Trace); RBC/HPF 0-3 HPF (0-3); Transitional Epithelial 0-3 HPF (0-3)
== END 2016-08-21 17:50 | disposition short-term general hospital (02) ==
LOC: NAV ERS 16:12
DX: I63.9 Cerebral infarction, unspecified (principal); F17.200 Nicotine dependence, unspecified, uncomplicated
CPT/HCPCS: 36416; 51702; 70450; 80053; 81003; 81015; 82272; 82550; 82553; 84484; 85025; 85610; 85730; 87086; 93005

== ENCOUNTER 2022-03-24 13:15 | Emergency (ER) | payer SELFPAY ==
[~2022-03-24 13:15] MED LIST: Iopamidol 370 76% 100 ML VIAL ONE
[2022-03-24 14:24] LABS: #Eosinphils 0.1 thou/uL (0.0-0.7); #Lymphocytes 1.3 thou/uL (1.20-3.40); #Monocytes 0.5 thou/uL (0.11-0.59); #Neutrophils 5.4 thou/uL (1.40-6.50); %Basophils 0.7 % (0.0-1.0); %Eosinophils 1.1 % (0.0-10.0); %Lymphocytes 17.2 % (21.0-51.0); %Monocytes 7.4 % (0.0-10.0); %Neutrophils 73.7 % (42.0-75.0); Hemoglobin 17.1 g/dL (14.0-18.0); Mean Corpuscular HGB CONC 31.3 g/dL (32.0-36.0); Mean Corpuscular Hemoglobin 30.7 pg (27.0-31.0); Mean Corpuscular Volume 98.3 fL (78.0-98.0); Mean Platelet Volume 6.4 fL (7.4-10.4); Platelet Count 229 thou/uL (130-400); RBC Distribution Width 11.9 % (11.5-14.5); Red Blood Cell (RBC) Count 5.57 mill/uL (4.70-6.10); White Blood Cell (WBC) Count 7.3 thou/uL (4.8-10.8)
[2022-03-24 14:39] LABS: ALT (SGPT) 14 U/L (8-55); AST (SGOT) 17 U/L (5-34); Albumin 4.1 g/dL (3.5-5.0); Alkaline Phosphatase 64 U/L (40-110); Anion Gap 17 mmol/L (10-20); BUN (Urea Nitrogen) 12 mg/dL (8.4-25.7); Bilirubin, Total 1.3 mg/dL (0.2-1.2); Calc. Creatinine Clearance 0 mL/min (70-130); Calcium 9.5 mg/dL (7.8-10.44); Carbon Dioxide 22 mmol/L (22-29); Chloride 103 mmol/L (98-107); Estimated GFR 95; Globulin 2.5 g/dL (2.4-3.5); Glucose 144 mg/dL (70-105); Lipase 15 U/L (8-78); Potassium 3.6 mmol/L (3.5-5.1); Protein, Total 6.6 g/dL (6.0-8.3); Sodium 138 mmol/L (136-145)
[2022-03-24] MEDS ORDERED: Sodium Chloride 0.9% 0 ML ONE (15:07)
[2022-03-24] MEDS ORDERED: Sodium Chloride 0.9% 1,000 ML ONE (15:09)
[2022-03-24] MEDS ORDERED: Ondansetron PF 4 MG/2 ML Vial ONE (15:15)
[2022-03-24 16:53] LABS: Bilirubin Negative (Negative); Blood, Urine Negative (Negative); Clarity Clear (Clear); Glucose, Urine (Dipstick) Negative (Negative); Ketone, Urine 15 mg/dL (Negative); Leukocyte Negative (Negative); Nitrite Negative (Negative); Protein, Urine (Dipstick) Negative (Neg-Trace)
== END 2022-03-24 17:20 | disposition home or self-care (01) ==
LOC: NAV ERS 13:15
DX: K40.90 Unilateral inguinal hernia, without obstruction or gangrene, not specified as recurrent (principal); F17.210 Nicotine dependence, cigarettes, uncomplicated
CPT/HCPCS: 74177; 80053; 81003; 83690; 85025; 93005; 96361; 96374; J2405; J7050; Q9967

== ENCOUNTER 2022-07-23 08:21 | Emergency (ER) | payer SELFPAY ==
[2022-07-23] MEDS ORDERED: Ondansetron PF 4 MG/2 ML Vial ONE (08:41)
[2022-07-23] MEDS ORDERED: HYDROmorphone 0.5 MG/0.5 ML SYRINGE ONE (08:41)
[2022-07-23] MEDS ORDERED: Iopamidol 370 76% 100 ML VIAL ONE (09:00)
[2022-07-23 09:30] LABS: #Basophils 0.1 thou/uL (0.0-0.2); #Eosinphils 0.1 thou/uL (0.0-0.7); #Lymphocytes 1.6 thou/uL (1.20-3.40); #Neutrophils 8.4 thou/uL (1.40-6.50); %Basophils 0.6 % (0.0-1.0); %Eosinophils 0.7 % (0.0-10.0); %Lymphocytes 14.6 % (21.0-51.0); %Monocytes 8.6 % (0.0-10.0); %Neutrophils 75.5 % (42.0-75.0); Hemoglobin 17.7 g/dL (14.0-18.0); Mean Corpuscular HGB CONC 33.1 g/dL (32.0-36.0); Mean Corpuscular Volume 96.7 fl (78.0-98.0); Mean Platelet Volume 5.7 fL (7.4-10.4); Platelet Count 236 10x3/uL (130-400); RBC Distribution Width 11.7 % (11.5-14.5); Red Blood Cell (RBC) Count 5.54 mill/uL (4.70-6.10); White Blood Cell (WBC) Count 11.1 10x3/uL (4.8-10.8)
[2022-07-23 09:42] LABS: ALT (SGPT) 73 U/L (8-55); AST (SGOT) 51 U/L (5-34); Albumin 4.8 g/dL (3.5-5.0); Alkaline Phosphatase 76 U/L (40-110); Anion Gap 12 mmol/L (10-20); BUN (Urea Nitrogen) 21 mg/dL (8.4-25.7); Bilirubin, Total 3.2 mg/dL (0.2-1.2); Calc. Creatinine Clearance 0 mL/min (70-130); Carbon Dioxide 25 mmol/L (22-29); Chloride 103 mmol/L (98-107); Estimated GFR 82; Globulin 2.7 g/dL (2.4-3.5); Glucose 109 mg/dL (70-105); Potassium 4.1 mmol/L (3.5-5.1); Protein, Total 7.5 g/dL (6.0-8.3); Sodium 136 mmol/L (136-145)
[2022-07-23 10:00] LABS: Bilirubin Negative (Negative); Blood, Urine Negative (Negative); Clarity Clear (Clear); Glucose, Urine (Dipstick) Negative (Negative); Ketone, Urine 15 mg/dL (Negative); Leukocyte Negative (Negative); Nitrite Negative (Negative); Protein, Urine (Dipstick) Trace mg/dL (Neg-Trace); Urobilinogen 0.2 mg/dL (Less than 2); pH, Urine 8.5 (5.0-9.0)
[2022-07-23] MEDS ORDERED: Sodium Chloride 0.9% 1,000 ML ONE (11:11)
[2022-07-23 11:30] LABS: SARS-CoV-2 NAA Rapid Test Not Detected (NotDetected)
[2022-07-23] MEDS ORDERED: Cefepime 2 GM VIAL ONE (11:41)
[2022-07-23] MEDS ORDERED: Sodium Chloride 0.9% 100 ML ONE (11:41)
== END 2022-07-23 12:15 | disposition short-term general hospital (02) ==
LOC: NAV ERS 08:21
DX: K40.30 Unilateral inguinal hernia, with obstruction, without gangrene, not specified as recurrent (principal); F17.210 Nicotine dependence, cigarettes, uncomplicated
CPT/HCPCS: 36415; 74177; 80053; 81003; 83605; 85025; 93005; 96365; 96375; J0692; J1170; J2405; J3490; J7050; Q9967; U0002